=== PATIENT | female | born 1995 | race Caucasian/White ===

== ENCOUNTER 2017-10-15 18:26 | Inpatient (IN) ==
[2017-10-15 14:35] LABS: Bilirubin,Urine Negative (Negative); Blood,Urine Negative (Negative); Clarity,Urine Cloudy (Clear); Color,Urine Yellow (Yellow); Glucose,Urine (UA) Normal (Normal); Ketones,Urine 80 mg/dL (Negative); Leukocyte Esterase,Urine Trace (Negative); Nitrite,Urine Negative (Negative); PH,Urine 6.5 pH Units (5.0-8.0); Protein,Urine Trace mg/dL (Neg-Trace); Specific Gravity,Urine 1.021 (1.010-1.025); Urobilinogen,Urine Normal (Normal)
[2017-10-15 14:38] LABS: Bacteria,Urine None Seen per hpf (None-Few); Hyaline Casts,Urine None Seen per lpf (None-Few); Squamous Epithelial Cell,Urine Many per lpf (None-Few)
[2017-10-15 14:48] LABS: Amphetamine Screen,Urine Negative ng/mL (Cutoff=1000); Barbiturate Screen,Urine Negative ng/mL (Cutoff=200); Benzodiazepines Screen,Urine Negative ng/mL (Cutoff=200); Cannabinoid Screen,Urine Positive ng/mL (Cutoff = 50); Cocaine Screen,Urine Negative ng/mL (Cutoff= 300); Opiate Screen,Urine Negative ng/mL (Cutoff=300); Phencyclidine Screen,Urine Negative ng/mL (Cutoff=25)
[2017-10-15 14:57] LABS: Mean Platelet Volume 9.5 fL (9.4-12.4); Red Cell Distribution Width 13.2 % (11.5-14.5)
[2017-10-15 14:59] LABS: Basophils # 0.1 K/mcL (0.0-0.2); Basophils % 0.2 %; Hematocrit 34.5 % (35.3-44.9); Hemoglobin 11.8 g/dL (11.5-15.4); Immature Granulocytes % 0.7 % (0-4); Lymphocytes # 1.3 K/mcL (0.6-4.6); Lymphocytes % 4.8 %; Mean Corpuscular HGB Conc 34.2 g/dL (31.6-35.5); Mean Corpuscular Hemoglobin 32.6 pg (28.0-33.3); Mean Corpuscular Volume 95.3 fL (83.0-100.0); Monocytes % 3.8 %; Neutrophils # 24.3 K/mcL (1.6-8.9); Platelet Count 410 K/mcL (140-400); Red Blood Count 3.62 M/mcL (3.82-4.97); Segmented Neutrophils % 90.5 %
--- NOTE | 2017-10-15 15:12 | OB/GYN History & Physical ---
Date of Encounter: 10/15/17 Time of Encounter: 15:09 Assessment and Plan (1) 36 weeks gestation of Current visit: Yes Status: Acute admitted for observation (2) Dehydration during Current visit: Yes Status: Acute (3) Marijuana use Current visit: Yes Status: Acute cord stat at delivery discussed risks of marijuana use in (4) NST (non-stress test) reactive on surveillance Current visit: Yes Status: Acute baseline 125 bpm moderate variability +15x15 accels no decels noted. History of Present Illness Chief complaint: contractions and nausea and vomiting HPI: Ms. Avila is a 21 year old female at 36w5d presents to labor and delivery via ambulance from [facility] ER. Patient reports reynold ruff started last night and nausea and vomiting started right before she left [facility]. Patient reports +FM. Denies LOF or VB. Patient denies any history or complications with current . Patient denies any drug allergies. Blood type: O Positive Rubella: Immune Hep B: Nonreactive GBS: pending Past Med Surg Social Fam HX - Past Medical History Medical history: no medical history Psychiatric history: no psych history - Past Surgical History Surgical History: no surgical history - Social History Smoking Status: Current every day smoker Packs per day: 0.5 Smokeless Tobacco Status: No Alcohol use: none Drug use: none - Family History Mother Living Status: Still Living Hx Family Cardiac Disorders: Yes (HTN) Obstetrical History - Pregnancies : 1 Para: 0 Term: 0 : 0 Ab's: 0 Livin Medications and Allergies Ferrous Sulfate 324 mg PO DAILY 10/15/17 [History] Vitamins 1 tab PO DAILY 10/15/17 [History] 3 Allergy/AdvReac Type Severity Reaction Status Date / Time No Known Allergies Allergy Verified 10/15/17 14:12 Review of System OB - Constitutional Constitutional ROS IM: no chills, no fever(s), no headache(s) - Cardiovascular Cardiovascular: no chest pain, no palpitations, no pedal edema, no slow heart rate, no syncope - Respiratory Respiratory: no cough - Gastrointestinal Gastrointestinal: nausea, vomiting, no abdominal pain, no constipation, no cramping, no diarrhea, no heartburn - Genitourinary Genitourinary: no abnormal vaginal bleeding, no dysuria, no flank pain, no urinary frequency, no urinary urgency, no vaginal discharge, no vaginal odor, no vaginal pruritis Exam - Constitutional Constitutional: well developed, well nourished, no acute distress, average body habitus - HEENT HEENT: Normocephaly, Mucus Membranes Moist - Neck Neck exam: full ROM, supple - Lungs Respiratory exam: CTAB - Cardiovascular Cardiovascular exam: RRR, +S1, +S2 - Abdomen Abdomen: Present: gravid, non tender, bowel sounds hyperactive - Extremities Extremities exam: full ROM, normal capillary refill Deep Tendon Reflex Grade: 2+ Normal - Cervix Dilation: 3 (per RN) Effacement: 90 Station: 0 - Uterus Uterus exam: Present: normal size, normal contour - Comments Comments: FHR 125 bpm moderate variability +15x15 accels no decels noted. Contractions irregular at this time. Cat 1 tracing Results Result Diagrams: 10/15/17 14:07 Abnormal lab results WBC 26.8 K/mcL (4.3-11.1) H 10/15/17 14:07 RBC 3.62 M/mcL (3.82-4.97) L 10/15/17 14:07 Hct 34.5 % (35.3-44.9) L 10/15/17 14:07 Plt Count 410 K/mcL (140-400) H 10/15/17 14:07 Urine Clarity Cloudy (Clear) A 10/15/17 14:08 Urine Ketones 80 mg/dL (Negative) H 10/15/17 14:08 Ur Leukocyte Esterase Trace (Negative) H 10/15/17 14:08 Urine Microscopic RBC 3-5 per hpf (0-3) H 10/15/17 14:08 Urine Microscopic WBC 3-5 per hpf (0-3) H 10/15/17 14:08 Ur Squamous Epith Cells Many per lpf (None-Few) H 10/15/17 14:08 Ur Culture Indicated? NO. (NO) A 10/15/17 14:08 U Marijuana (THC) Screen Positive ng/mL (Cutoff = 50) H 10/15/17 14:08 All other labs normal. - VTE Reasons for not Prescribing Prophylaxis: Treatment not Indicated - Low risk for VTE
[2017-10-15 15:26] LABS: Platelet Estimate Normal (Normal)
[2017-10-15 16:55] LABS: Alanine Aminotransferase 12 Units/L (7-52); Aspartate Amino Transferase 14 Units/L (13-39); BUN/Creatinine Ratio 14 (6-26); Blood Urea Nitrogen 6 mg/dL (6-20); Lactate Dehydrogenase 127 Units/L (140-271); Uric Acid 4.5 mg/dL (2.3-7.6); eGFR For African Americans > 60 (> 60); eGFR For Non-African Americans > 60 (> 60)
--- NOTE | 2017-10-15 18:21 | OB Labor Progress Note ---
Date of Encounter: 10/15/17 Time of Encounter: 18:19 Labor Progress Note - Subjective Subjective: Called to LDR patient reports feeling leaking of fluid. - Cervix Cervix: 4/90/0 - Heart Tones Heart Tones: 145 bpm moderate variability +15x15 accels - [place]: 1-3 min apart - Interventions Interventions: Speculum exam: +pooling, + nitrazine,+ FERN. SVE - Plan Plan: Continue labor management Will continue GBS prophylaxis while results are pending.
[~2017-10-15 18:26] MED LIST: *HR* Nalbuphine 10 MG/ML AMPUL IVP PRN; Famotidine 20 MG/2 ML VIAL IVP PRN; Naloxone 0.4 MG/ML INJ IVP PRN; Ondansetron 4 MG/2 ML VIAL IVP PRN; Ondansetron ODT 4 MG TAB.RAPDIS SL PRN; Penicillin G Potassium 5,000,000 UNIT in 0.9 % Sodium Chloride Mini Bag 100 ML IVPB ONE; Ringers Solution, Lactated 1,000 ML IVC SCH; Ringers Solution, Lactated 1,000 ML ONE; Ringers Solution, Lactated 500 ML IVC ONE
[2017-10-15] MEDS ORDERED: Penicillin G Potassium 2,500,000 UNIT in 0.9 % Sodium Chloride 100 ML IVPB SCH (20:00)
[2017-10-15] MEDS ORDERED: Lidocaine -MPF 1% 2 ML VIAL INFILT PRN (21:30)
[2017-10-15] MEDS ORDERED: Oxytocin 20 units/ LR 1000 mL 20 UNIT/1,000 ML BAG IVC ONE (21:33)
[2017-10-15] MEDS ORDERED: Lidocaine 1% 20 ML MDV INFILT PRN (21:47)
--- NOTE | 2017-10-15 23:10 | OB/GYN Procedure Note ---
Delivery - Delivery Date: 10/15/17 Provider: Rut Rios Intrapartum events: none Delivery induction: none Delivery monitor: external FHT, external uterine Anesthesia: local (for repair) Quantitated Blood Loss: 150 - (s) Infant A Infant Delivery Date: 10/15/17 Delivery Time: 02:45 Presentation: vertex Position: OA Route of delivery: Gender: Female Viability: Viable at 1 minute: 8 at 5 mins: 10 Shoulder Dystocia: not encountered Specimens collected: cord blood Placenta: spontaneous Cord: 3 umbilical vessels - Repair Episiotomy: none Laceration Description: Perineal - 1st Degree (repaired with 3- vicryl ) - Complications Delivery complications: none - Disposition Mom disposition: stable in LDR disposition: stable in LDR - Comments Comments: Called to LDR patient complete and +2. Patient placed in stirrups and prepped for delivery. Under maternal effort patient spontaneously delivered a viable female infant over a 1st degree perineal laceration. No nuchal cord, meconium or shoulder dystocia was encountered. was placed on maternal abdomen for skin to skin care. Cord was clamped and cut after pulsation ceased. a 1st degree perineal laceration was repaired with 3-0 vicryl. 1% lidocaine was used to anesthetize the site. Placenta delivered spontaneously and intact. Pericare provided. Ice pack to perineum. Both mother and infant stable in LDR for 2 hour recovery. weight has not been obtained at this time per Maternal preference.
[2017-10-16] MEDS ORDERED: Oxytocin 20 units/ LR 1000 mL 20 UNIT/1,000 ML BAG IVC ONE (01:01)
[2017-10-16] MEDS ORDERED: Acetaminophen 325 MG TABLET PO PRN (01:15)
[2017-10-16] MEDS ORDERED: Benzocaine/Menthol 56 GM AEROSOL SPRAY TP PRN (01:15)
[2017-10-16] MEDS ORDERED: Lanolin 7 G OINT...G. TP PRN (01:15)
[2017-10-16] MEDS ORDERED: Oxytocin 20 units/ LR 1000 mL 20 UNIT/1,000 ML BAG IVC SCH (01:15)
[2017-10-16] MEDS ORDERED: Measles/Mumps/Rubella Vacc 0.5 ML VIAL SQ PRN (01:15)
[2017-10-16 08:27] LABS: Basophils # 0.1 K/mcL (0.0-0.2); Basophils % 0.2 %; Hematocrit 30.5 % (35.3-44.9); Hemoglobin 10.7 g/dL (11.5-15.4); Lymphocytes # 2.4 K/mcL (0.6-4.6); Lymphocytes % 7.2 %; Mean Corpuscular HGB Conc 35.1 g/dL (31.6-35.5); Mean Corpuscular Hemoglobin 33.6 pg (28.0-33.3); Mean Corpuscular Volume 95.9 fL (83.0-100.0); Monocytes # 2.1 K/mcL (0.0-1.3); Monocytes % 6.3 %; Neutrophils # 28.3 K/mcL (1.6-8.9); Platelet Count 399 K/mcL (140-400); Red Blood Count 3.18 M/mcL (3.82-4.97); Segmented Neutrophils % 85.3 %
[2017-10-16] MEDS: Prenatal Vit/FA 1 EACH TABLET PO SCH (08:31)
[2017-10-16 09:43] LABS: Platelet Estimate Normal (Normal)
[2017-10-16] MEDS ORDERED: ceFAZolin 2,000 MG in D5% in Water 100 ML IVPB SCH (10:00)
--- NOTE | 2017-10-16 10:09 | OB/GYN Progress Note ---
Date of Encounter: 10/16/17 Time of Encounter: 10:06 - Assessment and Plan (1) Vaginal delivery Current Visit: Yes Status: Acute Continue routine PP care Consider discharge tomorrow (2) Neutrophilic leukocytosis Current Visit: Yes Status: Acute Monitor vitals CBC at 1600 IV antibiotics POC discussed with Dr. Nelson Subjective - Subjective Interval history: Doing well. States baby latching well. Tolerating regular diet well. Ambulating and voiding without difficulty. Lochia light and without clots. Reports mild cramping that does not require medication. Patient reports: appetite normal, voiding normally, pain well controlled, ambulating normally : doing well, nursing well Objective - Latest Vital Signs Latest vital signs: Vital Signs Temp Pulse Resp BP Pulse Ox 10/16/17 07:46 98.4 F 89 16 104/68 10/16/17 03:34 98.3 F 66 16 103/60 97 10/16/17 02:30 98.4 F 89 16 135/76 98 10/16/17 01:25 97.9 F 70 16 119/73 98 Intake and Output 10/15/17 10/16/17 10/16/17 23:59 07:59 15:59 Intake Total 300 / 300 720 / 720 Output Total 200 / 200 500 / 500 Balance 100 / 100 220 / 220 Intake: Oral 300 / 300 720 / 720 Output: Urine 200 / 200 500 / 500 Other: Meal Breakfast Percent of Meal Consumed 70% Weight 62.3 kg Patient Weight 10/16/17 23:59 Weight 62.3 kg - Exam Lungs: bilateral: normal Chest: Normal S1, Normal S2 Extremities: Present: normal Abdomen: Present: normal appearance, soft. Absent: tenderness Uterus: Present: firm. Absent: tenderness Uterus Position: 2 Fingers Below Umbilicus, Midline - Labs Labs: Laboratory Results - last 24 hr 10/15/17 10/15/17 10/15/17 14:07 14:08 14:08 WBC 26.8 H RBC 3.62 L Hgb 11.8 Hct 34.5 L MCV 95.3 MCH 32.6 MCHC 34.2 RDW 13.2 Plt Count 410 H MPV 9.5 Immature Gran % 0.7 Seg Neutrophils % 90.5 Lymphocytes % 4.8 Monocytes % 3.8 Eosinophils % 0.0 Basophils % 0.2 Neutrophils # 24.3 H Lymphocytes # 1.3 Monocytes # 1.0 Eosinophils # 0.0 Basophils # 0.1 Platelet Estimate Normal BUN Creatinine Est GFR ( Amer) Est GFR (Non-Af Amer) BUN/Creatinine Ratio Uric Acid AST ALT Lactate Dehydrogenase Urine Color Yellow Urine Clarity Cloudy A Urine pH 6.5 Ur Specific [place] 1.021 Urine Protein Trace Urine Glucose (UA) Normal Urine Ketones 80 H Urine Blood Negative Urine Nitrite Negative Urine Bilirubin Negative Urine Urobilinogen Normal Ur Leukocyte Esterase Trace H Urine Microscopic RBC 3-5 H Urine Microscopic WBC 3-5 H Ur Squamous Epith Cells Many H Urine Bacteria None Seen Hyaline Casts None Seen Ur Culture Indicated? NO. A Urine Opiates Screen Negative Ur Barbiturates Screen Negative Ur Phencyclidine Scrn Negative Ur Amphetamines Screen Negative U Benzodiazepines Scrn Negative Urine Cocaine Screen Negative U Marijuana (THC) Screen Positive H 10/15/17 10/16/17 14:45 07:37 WBC 33.2 H* RBC 3.18 L Hgb 10.7 L Hct 30.5 L MCV 95.9 MCH 33.6 H MCHC 35.1 RDW 13.0 Plt Count 399 MPV 10.0 Immature Gran % 1.0 Seg Neutrophils % 85.3 Lymphocytes % 7.2 Monocytes % 6.3 Eosinophils % 0.0 Basophils % 0.2 Neutrophils # 28.3 H Lymphocytes # 2.4 Monocytes # 2.1 H Eosinophils # 0.0 Basophils # 0.1 Platelet Estimate Normal BUN 6 Creatinine 0.42 L Est GFR ( Amer) > 60 Est GFR (Non-Af Amer) > 60 BUN/Creatinine Ratio 14 Uric Acid 4.5 AST 14 ALT 12 Lactate Dehydrogenase 127 L Urine Color Urine Clarity Urine pH Ur Specific [place] Urine Protein Urine Glucose (UA) Urine Ketones Urine Blood Urine Nitrite Urine Bilirubin Urine Urobilinogen Ur Leukocyte Esterase Urine Microscopic RBC Urine Microscopic WBC Ur Squamous Epith Cells Urine Bacteria Hyaline Casts Ur Culture Indicated? Urine Opiates Screen Ur Barbiturates Screen Ur Phencyclidine Scrn Ur Amphetamines Screen U Benzodiazepines Scrn Urine Cocaine Screen U Marijuana (THC) Screen
[2017-10-16] MEDS: ceFAZolin 2,000 MG in 0.9 % Sodium Chloride 100 ML IVPB SCH ×2 (11:10→19:58)
[2017-10-16 16:37] LABS: Hemoglobin 11.8 g/dL (11.5-15.4); Red Blood Count 3.49 M/mcL (3.82-4.97)
[2017-10-16 16:38] LABS: Basophils % 0.2 %; Eosinophils % 0.2 %; Hematocrit 34.2 % (35.3-44.9); Immature Granulocytes % 0.6 % (0-4); Lymphocytes # 2.3 K/mcL (0.6-4.6); Lymphocytes % 9.1 %; Mean Corpuscular HGB Conc 34.5 g/dL (31.6-35.5); Mean Corpuscular Hemoglobin 33.8 pg (28.0-33.3); Mean Platelet Volume 9.7 fL (9.4-12.4); Monocytes # 1.4 K/mcL (0.0-1.3); Monocytes % 5.8 %; Neutrophils # 20.9 K/mcL (1.6-8.9); Platelet Count 412 K/mcL (140-400); Red Cell Distribution Width 13.2 % (11.5-14.5); Segmented Neutrophils % 84.1 %
[2017-10-16] MEDS: Ibuprofen 600 MG TABLET PO PRN (19:57)
[2017-10-17] MEDS: ceFAZolin 2,000 MG in 0.9 % Sodium Chloride 100 ML IVPB SCH (03:48)
[2017-10-17] MEDS: Ibuprofen 600 MG TABLET PO PRN ×2 (04:25→10:03)
[2017-10-17 06:49] LABS: Basophils # 0.1 K/mcL (0.0-0.2); Basophils % 0.3 %; Eosinophils # 0.2 K/mcL (0.0-0.6); Hematocrit 31.9 % (35.3-44.9); Hemoglobin 10.6 g/dL (11.5-15.4); Lymphocytes % 19.1 %; Mean Corpuscular HGB Conc 33.2 g/dL (31.6-35.5); Mean Corpuscular Hemoglobin 32.5 pg (28.0-33.3); Mean Corpuscular Volume 97.9 fL (83.0-100.0); Mean Platelet Volume 9.4 fL (9.4-12.4); Monocytes # 1.1 K/mcL (0.0-1.3); Monocytes % 7.2 %; Neutrophils # 11.2 K/mcL (1.6-8.9); Platelet Count 360 K/mcL (140-400); Red Blood Count 3.26 M/mcL (3.82-4.97); Red Cell Distribution Width 13.2 % (11.5-14.5); Segmented Neutrophils % 71.4 %
[2017-10-17 07:41] VITALS: BP 107/74
--- NOTE | 2017-10-17 09:06 | Discharge Summary ---
Date of Encounter: 10/17/17 Time of Encounter: 09:04 - Discharge Diagnosis (1) Marijuana use Priority: Secondary Status: Acute Comments: To be seen by Edel today prior to discharge (2) Vaginal delivery Priority: Primary Status: Acute Comments: Pain well controlled with by mouth pain meds Tolerating regular diet Ambulating independently Voiding independently Passing flatus, but no BM yet Lochia light discharge home today (3) Breast feeding status of mother Priority: Secondary Status: Acute Comments: consult when necessary - Discharge Medications Prescriptions: Ibuprofen [Motrin] 600 mg PO Q6HR PRN #30 tablet PRN Reason: Cramping Cephalexin [Keflex] 500 mg PO BID #14 capsule Docusate [Colace] 100 mg PO BID #30 capsule Home Medications: Vitamins 1 tab PO DAILY 10/15/17 [History] Acetaminophen [Tylenol] 650 mg PO Q6HR PRN tablet 10/17/17 [Rx] Benzocaine/Menthol Naylor [Dermoplast Naylor] 1 appl TP QID PRN aerosol 10/17/17 [Rx] Cephalexin [Keflex] 500 mg PO BID #14 capsule 10/17/17 [Rx] Docusate [Colace] 100 mg PO BID #30 capsule 10/17/17 [Rx] Ibuprofen [Motrin] 600 mg PO Q6HR PRN #30 tablet 10/17/17 [Rx] Lanolin [Lansinoh] 1 appl TP TID PRN oint...g. 10/17/17 [Rx] Allergies/Adverse Reactions: 3 Allergy/AdvReac Type Severity Reaction Status Date / Time No Known Allergies Allergy Verified 10/15/17 14:12 Data Procedures and tests throughout hospitalization: Laboratory Tests 10/15/17 10/15/17 10/15/17 14:07 14:08 14:08 WBC 26.8 H RBC 3.62 L Hgb 11.8 Hct 34.5 L MCV 95.3 MCH 32.6 MCHC 34.2 RDW 13.2 Plt Count 410 H MPV 9.5 Immature Gran % 0.7 Seg Neutrophils % 90.5 Lymphocytes % 4.8 Monocytes % 3.8 Eosinophils % 0.0 Basophils % 0.2 Neutrophils # 24.3 H Lymphocytes # 1.3 Monocytes # 1.0 Eosinophils # 0.0 Basophils # 0.1 Platelet Estimate Normal BUN Creatinine Est GFR ( Amer) Est GFR (Non-Af Amer) BUN/Creatinine Ratio Uric Acid AST ALT Lactate Dehydrogenase Urine Color Yellow Urine Clarity Cloudy A Urine pH 6.5 Ur Specific [place] 1.021 Urine Protein Trace Urine Glucose (UA) Normal Urine Ketones 80 H Urine Blood Negative Urine Nitrite Negative Urine Bilirubin Negative Urine Urobilinogen Normal Ur Leukocyte Esterase Trace H Urine Microscopic RBC 3-5 H Urine Microscopic WBC 3-5 H Ur Squamous Epith Cells Many H Urine Bacteria None Seen Hyaline Casts None Seen Ur Culture Indicated? NO. A Urine Opiates Screen Negative Ur Barbiturates Screen Negative Ur Phencyclidine Scrn Negative Ur Amphetamines Screen Negative U Benzodiazepines Scrn Negative Urine Cocaine Screen Negative U Marijuana (THC) Screen Positive H 10/15/17 10/16/17 10/16/17 14:45 07:37 15:59 WBC 33.2 H* 24.8 H RBC 3.18 L 3.49 L Hgb 10.7 L 11.8 Hct 30.5 L 34.2 L MCV 95.9 98.0 MCH 33.6 H 33.8 H MCHC 35.1 34.5 RDW 13.0 13.2 Plt Count 399 412 H MPV 10.0 9.7 Immature Gran % 1.0 0.6 Seg Neutrophils % 85.3 84.1 Lymphocytes % 7.2 9.1 Monocytes % 6.3 5.8 Eosinophils % 0.0 0.2 Basophils % 0.2 0.2 Neutrophils # 28.3 H 20.9 H Lymphocytes # 2.4 2.3 Monocytes # 2.1 H 1.4 H Eosinophils # 0.0 0.0 Basophils # 0.1 0.0 Platelet Estimate Normal BUN 6 Creatinine 0.42 L Est GFR ( Amer) > 60 Est GFR (Non-Af Amer) > 60 BUN/Creatinine Ratio 14 Uric Acid 4.5 AST 14 ALT 12 Lactate Dehydrogenase 127 L Urine Color Urine Clarity Urine pH Ur Specific [place] Urine Protein Urine Glucose (UA) Urine Ketones Urine Blood Urine Nitrite Urine Bilirubin Urine Urobilinogen Ur Leukocyte Esterase Urine Microscopic RBC Urine Microscopic WBC Ur Squamous Epith Cells Urine Bacteria Hyaline Casts Ur Culture Indicated? Urine Opiates Screen Ur Barbiturates Screen Ur Phencyclidine Scrn Ur Amphetamines Screen U Benzodiazepines Scrn Urine Cocaine Screen U Marijuana (THC) Screen 10/17/17 06:19 WBC 15.7 H RBC 3.26 L Hgb 10.6 L Hct 31.9 L MCV 97.9 MCH 32.5 MCHC 33.2 RDW 13.2 Plt Count 360 MPV 9.4 Immature Gran % 1.0 Seg Neutrophils % 71.4 Lymphocytes % 19.1 Monocytes % 7.2 Eosinophils % 1.0 Basophils % 0.3 Neutrophils # 11.2 H Lymphocytes # 3.0 Monocytes # 1.1 Eosinophils # 0.2 Basophils # 0.1 Platelet Estimate BUN Creatinine Est GFR ( Amer) Est GFR (Non-Af Amer) BUN/Creatinine Ratio Uric Acid AST ALT Lactate Dehydrogenase Urine Color Urine Clarity Urine pH Ur Specific [place] Urine Protein Urine Glucose (UA) Urine Ketones Urine Blood Urine Nitrite Urine Bilirubin Urine Urobilinogen Ur Leukocyte Esterase Urine Microscopic RBC Urine Microscopic WBC Ur Squamous Epith Cells Urine Bacteria Hyaline Casts Ur Culture Indicated? Urine Opiates Screen Ur Barbiturates Screen Ur Phencyclidine Scrn Ur Amphetamines Screen U Benzodiazepines Scrn Urine Cocaine Screen U Marijuana (THC) Screen Labs on day of discharge: Labs from last 24 hours 10/17/17 10/16/17 10/16/17 06:19 15:59 07:37 WBC 15.7 H 24.8 H 33.2 H* RBC 3.26 L 3.49 L 3.18 L Hgb 10.6 L 11.8 10.7 L Hct 31.9 L 34.2 L 30.5 L MCV 97.9 98.0 95.9 MCH 32.5 33.8 H 33.6 H MCHC 33.2 34.5 35.1 RDW 13.2 13.2 13.0 Plt Count 360 412 H 399 MPV 9.4 9.7 10.0 Immature Gran % 1.0 0.6 1.0 Seg Neutrophils % 71.4 84.1 85.3 Lymphocytes % 19.1 9.1 7.2 Monocytes % 7.2 5.8 6.3 Eosinophils % 1.0 0.2 0.0 Basophils % 0.3 0.2 0.2 Neutrophils # 11.2 H 20.9 H 28.3 H Lymphocytes # 3.0 2.3 2.4 Monocytes # 1.1 1.4 H 2.1 H Eosinophils # 0.2 0.0 0.0 Basophils # 0.1 0.0 0.1 Platelet Estimate Normal Date of admission: 10/15/17 18:26 Consults: 10/16/17 01:15 Consult to Front End Drupal Developer [CONS] Routine Comment: Vaginal delivery, consult needed Consult to Watch Electrician [CONS] Routine Reason for SW Consult: self cutting, +UDS Discharging clinician: Mally Brooks Anticipated date of discharge: 10/17/17 - Patient Status Disposition: Home, Self-Care Condition: Good Functional capacity at discharge: independent ambulation Overall status at discharge: patient is progressing back to baseline - Discharge Instructions Follow Up With: Leonard Arthur DO [Partnered Physician] - - Diet and Activity Activity: increase activity as tolerated Diet: regular diet Hospital Course Reason for admission: active labor, IUP - Delivery: Episiotomy: none Laceration: 1st degree Other procedures: none complications: none Discharge diagnosis: delivery S[place]y baby: female Time Attestation: Total time spent providing and/or coordinating discharge services: Time Spent: Less than 30 minutes Exam - Constitutional Vitals: Temp Pulse Resp BP Pulse Ox 98.6 F 59 16 107/74 98 10/17/17 07:40 10/17/17 07:40 10/17/17 08:27 10/17/17 07:40 10/17/17 03:55 General appearance IM: A&O X 3 - Respiratory Respiratory exam: Present: CTAB - Cardiovascular Cardiovascular exam IM: Present: RRR, +S1, +S2 - GI/Abdominal GI/Abdominal exam IM: normal bowel sounds, no peritoneal signs - Rectal Rectal exam: deferred - Uterine Tone: Firm Uterus Position: 1 Finger Below Umbilicus, Midline - Extremities Exam Extremities exam IM: Present: normal capillary refill, normal inspection, radial pulses palpable and symmetrical - Neurological Exam Neurological exam: alert, oriented X3 - Psychiatric Additional comments: Patient reports history of anxiety and depression. Signs and symptoms of depression discussed and patient and grandmother verbalizes when to call for help. - Other Additional findings: Breasts: Soft, nontender. Slight erythema from breast-feeding. Double sore but intact. Patient using lanolin cream for relief at this point
[2017-10-17] MEDS: Prenatal Vit/FA 1 EACH TABLET PO SCH (10:03)
== END 2017-10-17 13:13 | disposition home or self-care (01) | DRG 560 ==
LOC: 1NENULAB → 1NENUOBS 10-16 01:15
PROVIDERS: ADMIT Advanced Practice Midwife; ATTEND Advanced Practice Midwife